=== PATIENT | female | born 1960 | race Two or more races ===

== ENCOUNTER 2019-09-30 13:02 | Outpatient (CLI) | payer MEDICAID, OTHER ==
[~2019-09-30] VITALS: Ht 162.6 cm; Wt 61.7 kg
[2019-09-30 14:16] VITALS: BP 110/53
[2019-09-30] MEDS ORDERED: GAVISCON ES TA1 EACH PO (14:16)
[2019-09-30] MEDS ORDERED: INSULIN (14:16)
[2019-09-30] MEDS ORDERED: METFORMIN HCL500 M1 ORAL (14:16)
--- NOTE | 2019-09-30 22:15 | Consultation ---
DATE OF CONSULTATION: 09/30/2019 CONSULTING PHYSICIAN: Gabino Calzada MD. REFERRING PHYSICIAN: Dr. Moran. CHIEF COMPLAINT: Abdominal pain, bloating, elevated CEA, GERD, need for screening colonoscopy. PAST MEDICAL HISTORY: 1. Diabetes. 2. Left breast cancer. 3. Arthritis. 4. GERD. PAST SURGICAL HISTORY: 1. Left mastectomy. 2. Appendectomy. MEDICATIONS: Please see medication reconciliation list. FAMILY HISTORY: Significant for diabetes. SOCIAL HISTORY: The patient denies any tobacco, alcohol, or IV drug abuse. REVIEW OF SYSTEMS: Positive for abdominal pain, GERD, bloating. ALLERGIES: To aspirin, sulfa medication. PHYSICAL EXAMINATION: VITAL SIGNS: Temperature 97.8, blood pressure is 110/55, pulse 71, respirations 20. HEENT: Normocephalic and atraumatic. Sclerae anicteric. NECK: Supple. No evidence of obvious lymphadenopathy. CARDIOVASCULAR: Regular rhythm. Plus S1, S2. LUNGS: Clear to auscultation bilaterally. ABDOMEN: Positive bowel sounds. Soft, nontender. No rebound. No guarding. No peritoneal sign. EXTREMITIES: No cyanosis. No clubbing. No edema. ASSESSMENT AND PLAN: 1. GERD. 2. Possible SIBO. 3. Possible IBS. 4. Need for screening colonoscopy. PLAN: Send stool for H. pylori. Start the patient on omeprazole 40 mg daily for GERD symptoms. Start Align for possible bacterial overgrowth. Follow CT of the abdomen and pelvis, which has been ordered by Dr. Moran. Plan colonoscopy when authorization is obtained. I want to thank, Dr. Moran, for this kind referral. Gabino Calzada M.D. DR: Yashira JOB#: [id number] CC: Dr. Moran
== END 2019-09-30 15:57 | disposition home or self-care (01) ==
LOC: PAN 13:02
DX: R10.9 Unspecified abdominal pain (principal); R14.0 Abdominal distension (gaseous); K21.9 Gastro-esophageal reflux disease without esophagitis; E11.9 Type 2 diabetes mellitus without complications; M19.90 Unspecified osteoarthritis, unspecified site; Z85.3 Personal history of malignant neoplasm of breast; Z90.89 Acquired absence of other organs; Z90.12 Acquired absence of left breast and nipple; Z88.6 Allergy status to analgesic agent; Z88.2 Allergy status to sulfonamides
CPT/HCPCS: G0463